=== PATIENT | female | born 1995 | race African-American/Black ===

== ENCOUNTER 2023-08-21 14:29 | Emergency (ER) | payer SELFPAY | END 2023-08-21 19:50 | disposition home or self-care (01) | LOC: JD.ED 14:29 | DX: O46.91 Antepartum hemorrhage, unspecified, first trimester (principal); Z3A.12 12 weeks gestation of pregnancy | CPT/HCPCS: 36415; 76817; 76817-26; 84702; 86900; 86901; 99284 ==

== ENCOUNTER 2023-09-28 11:23 | Inpatient (IN) | payer OTHER ==
[2023-09-28] MEDS ORDERED: Acetaminophen 325 MG Tab PO PRN ×2 (11:28→15:27)
[2023-09-28] MEDS ORDERED: Sodium Chloride 0.9% 10 ML Syringe FLUSH PRN ×2 (11:28)
[2023-09-28] MEDS ORDERED: Atropine/Diphenoxylate 0.025-2.5 MG Tab PO PRN (11:28)
[2023-09-28 11:54] LABS: BASOPHILS PERCENT AUTO 0.3 % (0.0-1.0); EOSINOPHILS ABSOLUTE AUTO 0.2 K/mm3 (0.0-0.4); EOSINOPHILS PERCENT AUTO 1.5 % (0.0-6.0); HEMATOCRIT 32.8 % (37.0-47.0); HEMOGLOBIN 10.7 gm/dl (12.0-16.0); IMMATURE GRAN ABSOLUTE AUTO 0.05 K/mm3 (0.00-0.05); IMMATURE GRAN PERCENT AUTO 0.4 % (0.0-0.4); LYMPHOCYTES ABSOLUTE AUTO 2.8 K/mm3 (1.0-4.8); LYMPHOCYTES PERCENT AUTO 19.7 % (24.0-44.0); MEAN CORPUSCULAR HEMOGLOBIN 25.9 pg (28.0-32.0); MEAN CORPUSCULAR HGB CONC 32.6 g/dl (32.0-36.0); MEAN CORPUSCULAR VOLUME 79.4 fl (83.0-99.0); MEAN PLATELET VOLUME 10.5 fl (9.4-12.3); MONOCYTES ABSOLUTE AUTO 0.9 K/mm3 (0.0-0.8); MONOCYTES PERCENT AUTO 6.7 % (0.0-8.0); NEUTROPHILS ABSOLUTE AUTO 10.1 K/mm3 (1.8-7.7); NEUTROPHILS PERCENT AUTO 71.4 % (41.0-71.0); PLATELET COUNT,PLT 346 K/mm3 (150-400); RED BLOOD CELL COUNT 4.13 M/mm3 (4.10-5.30); WHITE BLOOD CELL COUNT,WBC 14.08 K/mm3 (3.9-11.3)
[2023-09-28] MEDS: Misoprostol 200 MCG Tab BUCCAL SCH (11:56)
[2023-09-28 12:13] LABS: INR 0.95; PROTHROMBIN TIME 10.2 SECONDS (9.7-12.0)
[2023-09-28 12:14] LABS: PTT,PARTIAL THROMBOPLSTIN TIME 27.8 SECONDS (21.7-31.4)
[2023-09-28] MEDS: Carboprost Tromethamine 250 MCG/1 mL Vial IM SCH (12:14)
[2023-09-28] MEDS: Carboprost Tromethamine 250 MCG/1 mL Vial IM PRN (12:49)
[2023-09-28] MEDS: Lactated Ringers 1,000 ML IV SCH (12:58)
[2023-09-28] MEDS ORDERED: Lidocaine 1% 6 ML ONE (13:02)
[2023-09-28] MEDS ORDERED: Propofol 200 MG/20 ML SDV ONE (13:02)
[2023-09-28] MEDS ORDERED: Midazolam 1 MG/ML 2 ML SDV ONE (13:03)
[2023-09-28] MEDS ORDERED: fentaNYL 250 MCG/5 ML SDV ONE (13:03)
[2023-09-28] MEDS ORDERED: Ondansetron 4 MG/2 ML SDV IVPUSH PRN (13:07)
[2023-09-28] MEDS ORDERED: Succinylcholine 200 MG/10 ML MDV ONE (13:13)
[2023-09-28] MEDS ORDERED: Lactated Ringers 1,000 ML ONE (13:44)
[2023-09-28] MEDS ORDERED: ceFAZolin 2 GM Vial ONE (13:52)
[2023-09-28] MEDS ORDERED: dexmedeTOMIDine HCl 200 MCG/2 ML SDV ONE (13:56)
[2023-09-28] MEDS ORDERED: Methylergonovine 0.2 MG/1 ML Amp ONE (14:00)
[2023-09-28] MEDS ORDERED: Tranexamic Acid 1,000 MG/10 ML Vial ONE (14:09)
[2023-09-28] MEDS ORDERED: Metoclopramide 10 MG/2 ML SDV ONE (14:17)
[2023-09-28] MEDS ORDERED: fentaNYL 100 MCG/2 ML SDV IVPUSH PRN (14:53)
[2023-09-28] MEDS ORDERED: HYDROmorphone 0.5 MG/0.5 ML Syringe IVPUSH PRN (14:53)
[2023-09-28] MEDS ORDERED: Rocuronium 50 MG/5 ML Vial ONE (15:08)
[2023-09-28 15:39] LABS: BASOPHILS PERCENT AUTO 0.2 % (0.0-1.0); EOSINOPHILS ABSOLUTE AUTO 0.1 K/mm3 (0.0-0.4); EOSINOPHILS PERCENT AUTO 0.6 % (0.0-6.0); HEMOGLOBIN 8.5 gm/dl (12.0-16.0); IMMATURE GRAN ABSOLUTE AUTO 0.05 K/mm3 (0.00-0.05); IMMATURE GRAN PERCENT AUTO 0.4 % (0.0-0.4); LYMPHOCYTES ABSOLUTE AUTO 1.4 K/mm3 (1.0-4.8); LYMPHOCYTES PERCENT AUTO 11.1 % (24.0-44.0); MEAN CORPUSCULAR HEMOGLOBIN 26.1 pg (28.0-32.0); MEAN CORPUSCULAR HGB CONC 32.7 g/dl (32.0-36.0); MEAN CORPUSCULAR VOLUME 79.8 fl (83.0-99.0); MEAN PLATELET VOLUME 11.2 fl (9.4-12.3); MONOCYTES ABSOLUTE AUTO 0.8 K/mm3 (0.0-0.8); MONOCYTES PERCENT AUTO 6.5 % (0.0-8.0); NEUTROPHILS ABSOLUTE AUTO 10.3 K/mm3 (1.8-7.7); NEUTROPHILS PERCENT AUTO 81.2 % (41.0-71.0); PLATELET COUNT,PLT 300 K/mm3 (150-400); RED BLOOD CELL COUNT 3.26 M/mm3 (4.10-5.30); WHITE BLOOD CELL COUNT,WBC 12.68 K/mm3 (3.9-11.3)
[2023-09-28] MEDS: Misoprostol 200 MCG Tab PO SCH (15:58)
[2023-09-28] MEDS: Ibuprofen 600 MG Tab PO PRN (17:29)
[2023-09-28] MEDS: Atropine/Diphenoxylate 0.025-2.5 MG Tab PO PRN (18:10)
[2023-09-28] MEDS: Sodium Chloride 0.9% 10 ML Syringe FLUSH SCH (23:48)
[2023-09-29 05:45] LABS: BASOPHILS PERCENT AUTO 0.1 % (0.0-1.0); HEMATOCRIT 23.5 % (37.0-47.0); HEMOGLOBIN 7.8 gm/dl (12.0-16.0); IMMATURE GRAN PERCENT AUTO 0.6 % (0.0-0.4); LYMPHOCYTES ABSOLUTE AUTO 1.7 K/mm3 (1.0-4.8); LYMPHOCYTES PERCENT AUTO 10.6 % (24.0-44.0); MEAN CORPUSCULAR HEMOGLOBIN 26.1 pg (28.0-32.0); MEAN CORPUSCULAR HGB CONC 33.2 g/dl (32.0-36.0); MEAN CORPUSCULAR VOLUME 78.6 fl (83.0-99.0); MEAN PLATELET VOLUME 10.9 fl (9.4-12.3); MONOCYTES ABSOLUTE AUTO 0.9 K/mm3 (0.0-0.8); MONOCYTES PERCENT AUTO 5.7 % (0.0-8.0); NEUTROPHILS ABSOLUTE AUTO 13.5 K/mm3 (1.8-7.7); PLATELET COUNT,PLT 296 K/mm3 (150-400); RED BLOOD CELL COUNT 2.99 M/mm3 (4.10-5.30); WHITE BLOOD CELL COUNT,WBC 16.28 K/mm3 (3.9-11.3)
[2023-09-29 08:10] VITALS: BP 109/59; PULSE 86
== END 2023-09-29 10:25 | disposition home or self-care (01) | DRG 770 ==
LOC: JD.OBCHECK 11:23 → JD.OB 11:25 → JD.OBCHECK 11:29 → JD.OB 16:34 → OBSVTOIN 16:39
PROVIDERS: ADMIT Obstetrics & Gynecology; ATTEND Obstetrics & Gynecology
PROC: 10D17ZZ Extraction of Products of Conception, Retained, Via Natural or Artificial Opening (ICD-10-PCS; principal; 2023-09-28 13:00)
DX: O03.4 Incomplete spontaneous abortion without complication (principal); O72.2 Delayed and secondary postpartum hemorrhage; Z3A.17 17 weeks gestation of pregnancy; O99.212 Obesity complicating pregnancy, second trimester
CPT/HCPCS: 01965; 36410; 36415; 85025; 85384; 85610; 85730; 86850; 86900; 86901; A9270-GY; J0330; J0690; J2210; J2250; J2704; J2765; J3010; J3490; J7120